=== PATIENT | male | born 1975 | race Caucasian/White ===

== ENCOUNTER 2024-08-15 05:48 | Emergency (ER) | payer OTHER, SELFPAY ==
[2024-08-15] VITALS (7 sets, daily range): BP systolic 134–143; BP diastolic 80–96; PULSE 51–63; RESP 16–18; TEMP 36.8; O2SAT 91–98; BMI 29.7
--- NOTE | 2024-08-15 05:51 | DI.CT.S_ITS ---
PROCEDURE: CT ABDOMEN PELVIS WO CON INDICATIONS: back pain, hx kidney stones TECHNIQUE: Axial sections were acquired from the lung bases to the pubic symphysis. Coronal and sagittal reformats were performed. For radiation dose reduction, the following was used: automated exposure control, adjustment of mA and/or kV according to patient size. COMPARISON: None. FINDINGS: Image quality: Diagnostic. Lower Chest: No significant findings. URINARY: Right Kidney: A couple of sub 3 millimeter nonobstructing nephrolithiasis. Right Ureter: No hydroureter. Left Kidney: Moderate burden of sub 4 millimeter nonobstructing nephrolithiasis. Moderate hydronephrosis. Mild renal edema and perinephric fat stranding Left Ureter: Obstructing 3-4 millimeter stone in the left UVJ, resulting in moderate hydroureter. Bladder: Normal wall thickness. No stones. ABDOMEN: Liver: No contour-deforming solid mass. Hepatic steatosis. Segment 2/3 cyst by Hounsfield units criteria measuring 2.4 centimeter. Additional subcentimeter hypoattenuating lesions, too small to characterize by CT. Gallbladder: No radiopaque gallstones or wall thickening. Biliary ducts: No biliary dilation. Pancreas: No ductal dilation. Spleen: Size is within normal limits. Adrenal Glands: No adrenal nodules. Stomach and Bowel: Normal colonic caliber, without significant wall thickening. Normal appendix. Peritoneum: No abnormal intraperitoneal fluid. No free air. Ventral Wall: Small umbilical hernia containing fat. Abdominal Nodes: No enlarged retroperitoneal or mesenteric lymph nodes. Vessels: Aorta and inferior vena cava are normal in size. PELVIS: Pelvic Organs: Unremarkable. Pelvic Nodes: Unremarkable. Miscellaneous: No inguinal hernias are seen. Bones: Degenerative disc disease of the lumbar spine. Disc osteophyte complex at L5-S1 causing mild spinal canal narrowing. IMPRESSION: Obstructing 4 millimeter stone in the left UVJ, resulting in moderate hydronephrosis and hydroureter. Agree with preliminary report. Dictated by: Denys Sexton M.D. on 08/15/2024 at 8:20 Approved by: Denys Sexton M.D. on 08/15/2024 at 8:23
--- NOTE | 2024-08-15 05:58 | ED_ITS ---
HPI - General Adult <Hammad Hdz MD - Last Filed: 08/15/24 16:09> General Chief complaint: Abdominal Pain Stated complaint: kidney stones Time Seen by Provider: 08/15/24 05:51 History of Present Illness HPI narrative: 48-year-old male with history of kidney stones, has nontraumatic acute onset left middle quadrant discomfort that started 2 hours ago, with some nausea but no emesis. No fevers or chills. No painful urination or dark urination. No loose stools now. Recently he did have gastrointestinal illness last week that seemed to have resolved. Not currently taking any antibiotics. No exposure to persons known to have similar symptoms in close contact. No recent cough or shortness of breath. He had acute onset of his pain and [place] and was helicoptered over here for further management of the pain, receiving IV fentanyl and IV toradol during his transport. Related Data Previous Rx's Medication Instructions Recorded hydrocodone 5 mg-acetaminophen 325 1 tab PO Q6H PRN pain #14 tabs 08/15/24 mg tablet ondansetron 4 mg disintegrating 4 mg PO Q6-8H PRN nausea and 08/15/24 tablet vomiting #10 tabs tamsulosin 0.4 mg capsule (Flomax) 0.4 mg PO BEDTIME #10 caps 08/15/24 Allergies Allergy/AdvReac Type Severity Reaction Status Date / Time No Known Drug Allergies Allergy Verified 08/15/24 06:22 Patient History <Hammad Hdz MD - Last Filed: 08/15/24 16:09> Social History Smoking Status: Never smoker Exam <Hammad Hdz MD - Last Filed: 08/15/24 16:09> Narrative Exam Narrative: GENERAL: Well-developed patient, in mild distress. HEAD: Atraumatic. Normocephalic. EYES: Pupils equal round and reactive. Extraocular motions intact. No scleral icterus. No injection or drainage. ENT: Nose without bleeding, purulent drainage. Throat without erythema, tonsillar hypertrophy or exudate. Airway patent. NECK: Trachea midline. Non tender CARDIOVASCULAR: Regular rate and rhythm without murmurs, gallops, or rubs. RESPIRATORY: Clear to auscultation. Breath sounds equal bilaterally. No wheezes, rales, or rhonchi. GASTROINTESTINAL: Abdomen soft, non-tender, nondistended. EXTREMITIES: No edema or joint tenderness. BACK: Nontender without deformity or crepitance. No flank tenderness. NEURO: AOx3. Motor functions grossly nonfocal SKIN: No rash or erythema of visible areas Initial Vital Signs Initial Vital Signs: Vital Signs Pulse Rate 63 08/15/24 05:52 Blood Pressure 140/96 H 08/15/24 05:52 Pulse Oximetry 92 08/15/24 05:52 <Edilma Dixon DO - Last Filed: 08/15/24 11:13> Initial Vital Signs Initial Vital Signs: Vital Signs Pulse Rate 63 08/15/24 05:52 Blood Pressure 140/96 H 08/15/24 05:52 Pulse Oximetry 92 08/15/24 05:52 Course <Hammad Hdz MD - Last Filed: 08/15/24 16:09> Orders Ordered: ED Orders 08/15/24 07:10 Urinalysis and Microscopic Stat Discontinued Medications Hydrocodone Bitart/Acetaminophen (Hydrocodone/Acet 5/325 Tablet) 1 tab PO NOW ONE Stop: 08/15/24 08:41 Last Admin: 08/15/24 08:43 Dose: Not Given Documented By: RHODA Hydrocodone Bitart/Acetaminophen (Hydrocodone/Acet 5/325 Tablet) 1 tab PO NOW ONE Stop: 08/15/24 08:42 Last Admin: 08/15/24 08:47 Dose: 1 tab Documented By: GA Hydromorphone HCl (Hydromorphone 0.5 Mg Inj) 0.5 mg IV NOW ONE Stop: 08/15/24 06:02 Last Admin: 08/15/24 06:31 Dose: 0.5 mg Documented By: RACIEL Hydromorphone HCl (Hydromorphone 0.5 Mg Inj) 0.5 mg IV NOW ONE Stop: 08/15/24 08:36 Last Admin: 08/15/24 08:43 Dose: Not Given Documented By: RHODA Ketorolac Tromethamine (Ketorolac 30 Mg/Ml Vial) 15 mg IV NOW ONE Stop: 08/15/24 06:02 Last Admin: 08/15/24 06:20 Dose: Not Given Documented By: RACIEL Ondansetron HCl (Ondansetron 4 Mg/2 Ml Inj) 4 mg IV NOW ONE Stop: 08/15/24 06:02 Last Admin: 08/15/24 08:46 Dose: Not Given Documented By: GA Vital Signs Vital signs: Vital Signs - 8 hr 08/15/24 08:30 08/15/24 08:30 Pulse Rate 59 L Blood Pressure 134/80 Pulse Oximetry 96 <Edilma Dixon DO - Last Filed: 08/15/24 11:13> Orders Ordered: ED Orders 08/15/24 07:10 Urinalysis and Microscopic Stat Discontinued Medications Hydrocodone Bitart/Acetaminophen (Hydrocodone/Acet 5/325 Tablet) 1 tab PO NOW ONE Stop: 08/15/24 08:41 Last Admin: 08/15/24 08:43 Dose: Not Given Documented By: RHODA Hydrocodone Bitart/Acetaminophen (Hydrocodone/Acet 5/325 Tablet) 1 tab PO NOW ONE Stop: 08/15/24 08:42 Last Admin: 08/15/24 08:47 Dose: 1 tab Documented By: GA Hydromorphone HCl (Hydromorphone 0.5 Mg Inj) 0.5 mg IV NOW ONE Stop: 08/15/24 06:02 Last Admin: 08/15/24 06:31 Dose: 0.5 mg Documented By: RACIEL Hydromorphone HCl (Hydromorphone 0.5 Mg Inj) 0.5 mg IV NOW ONE Stop: 08/15/24 08:36 Last Admin: 08/15/24 08:43 Dose: Not Given Documented By: RHODA Ketorolac Tromethamine (Ketorolac 30 Mg/Ml Vial) 15 mg IV NOW ONE Stop: 08/15/24 06:02 Last Admin: 08/15/24 06:20 Dose: Not Given Documented By: RACIEL Ondansetron HCl (Ondansetron 4 Mg/2 Ml Inj) 4 mg IV NOW ONE Stop: 08/15/24 06:02 Last Admin: 08/15/24 08:46 Dose: Not Given Documented By: GA Vital Signs Vital signs: Vital Signs - 8 hr 08/15/24 08:30 08/15/24 08:30 Pulse Rate 59 L Blood Pressure 134/80 Pulse Oximetry 96 Medical Decision Making <Hammad Hdz MD - Last Filed: 08/15/24 16:09> Lab Data 08/15/24 06:13 08/15/24 06:13 Labs: Lab Results 08/15/24 08/15/24 Range/Units 06:13 07:10 WBC 7.8 (4.5-11.0) X10^3/uL RBC 4.41 L (4.5-5.9) X10^6/uL Hgb 13.3 L (13.5-17.5) g/dL Hct 39.3 L (41-53) % MCV 89.2 (80-100) fL MCH 30.2 (26-34) PG MCHC 33.9 (30-36) % RDW 12.6 (11.6-14.8) % Plt Count 221 (150-400) X10^3/uL Neut % (Auto) 74.5 (50-75) % Lymph % (Auto) 16.6 L (25-40) % [place] % (Auto) 5.1 (3-14) % Eos % (Auto) 3.2 (2-4) % Baso % (Auto) 0.6 (0-2) % Neut # (Auto) 5800 (4456-2189) /uL Lymph # (Auto) 1300 (2106-6594) /uL [place] # (Auto) 400 (0-900) /uL Eos # (Auto) 200 (0-450) /uL Baso # (Auto) 0 (0-100) /uL Sodium 138 (137-145) mmol/L Potassium 4.1 (3.4-5.1) mmol/L Chloride 104 (98-107) mmol/L Carbon Dioxide 27 (22-32) mmol/L BUN 13 (9-20) mg/dL Creatinine 0.97 (0.66-1.25) mg/dL Estimated GFR > 60 (>60) mL/min BUN/Creatinine Ratio 13.4 (6-22) Glucose 128 H (70-99) mg/dL Calcium 8.8 (8.4-10.2) mg/dL Total Bilirubin 0.6 (0.2-1.3) mg/dL AST 57 (17-59) IU/L ALT 89 H (<50) IU/L Alkaline Phosphatase 71 (38-126) U/L Total Protein 6.6 (6.3-8.2) g/dL Albumin 4.0 (3.5-5.0) g/dL Globulin 2.6 (1.7-4.1) g/dL Albumin/Globulin Ratio 1.5 (1.0-2.8) Urine Color Yellow Urine Appearance Clear Urine pH 6.0 (4.5-8.0) Ur Specific [place] 1.025 (1.000-1.035) Urine Protein Negative (Negative) Urine Glucose (UA) Negative (Negative) g/dL Urine Ketones Negative (NEGATIVE) Urine Occult Blood 3+ H (Negative) Urine Nitrate Negative (Negative) Urine Bilirubin Negative (NEGATIVE) Urine Urobilinogen 0.2 (0.2) E.U./dL Ur Leukocyte Esterase Negative (NEGATIVE) Urine RBC 10-30/hpf H (0-5/HPF) Urine WBC None seen (0-5/HPF) Ur Squamous Epith Cells None seen (0-5/HPF) Urine Bacteria None seen (None) Ur Culture Indicated? Cult not indicated Vol Urine Centrifuged 10ml (spun) MDM Narrative Medical decision making narrative: 48-year-old male with nontraumatic left middle quadrant area discomfort onset 2 hours ago, history of kidney stones, feels somewhat similar, was flown over by helicopter ambulance from [place] for unrelenting pain, given IV fentanyl EN route, some transient improvement, now hurting again. Afebrile, sirs screen negative. DX consider ureteral stone left-sided, UTI, colitis, diverticulitis, muscular strain, radiculopathy, other. We discussed imaging, since he has had history of stones prior, he prefers imaging. CT abdomen and pelvis noncontrast study ordered. Labs still pending. We will give additional analgesic IV Dilaudid and IV Toradol. 0700, CT report pending. Signed out to oncoming ED shift physician Dr. Dixon. Dr. Dixon-patient signed out to me by Dr. Hdz I have seen evaluated patient myself. After Dilaudid he was feeling better. CT does show 6 mm left UVJ calculus. Blood work has been reviewed no leukocytosis no SMITH. Awaiting urinalysis. Currently pain controlled. <Edimla Dixon, DO - Last Filed: 08/15/24 11:13> Lab Data Labs: Lab Results 08/15/24 08/15/24 Range/Units 06:13 07:10 WBC 7.8 (4.5-11.0) X10^3/uL RBC 4.41 L (4.5-5.9) X10^6/uL Hgb 13.3 L (13.5-17.5) g/dL Hct 39.3 L (41-53) % MCV 89.2 (80-100) fL MCH 30.2 (26-34) PG MCHC 33.9 (30-36) % RDW 12.6 (11.6-14.8) % Plt Count 221 (150-400) X10^3/uL Neut % (Auto) 74.5 (50-75) % Lymph % (Auto) 16.6 L (25-40) % [place] % (Auto) 5.1 (3-14) % Eos % (Auto) 3.2 (2-4) % Baso % (Auto) 0.6 (0-2) % Neut # (Auto) 5800 (5981-6032) /uL Lymph # (Auto) 1300 (2780-4535) /uL [place] # (Auto) 400 (0-900) /uL Eos # (Auto) 200 (0-450) /uL Baso # (Auto) 0 (0-100) /uL Sodium 138 (137-145) mmol/L Potassium 4.1 (3.4-5.1) mmol/L Chloride 104 (98-107) mmol/L Carbon Dioxide 27 (22-32) mmol/L BUN 13 (9-20) mg/dL Creatinine 0.97 (0.66-1.25) mg/dL Estimated GFR > 60 (>60) mL/min BUN/Creatinine Ratio 13.4 (6-22) Glucose 128 H (70-99) mg/dL Calcium 8.8 (8.4-10.2) mg/dL Total Bilirubin 0.6 (0.2-1.3) mg/dL AST 57 (17-59) IU/L ALT 89 H (<50) IU/L Alkaline Phosphatase 71 (38-126) U/L Total Protein 6.6 (6.3-8.2) g/dL Albumin 4.0 (3.5-5.0) g/dL Globulin 2.6 (1.7-4.1) g/dL Albumin/Globulin Ratio 1.5 (1.0-2.8) Urine Color Yellow Urine Appearance Clear Urine pH 6.0 (4.5-8.0) Ur Specific [place] 1.025 (1.000-1.035) Urine Protein Negative (Negative) Urine Glucose (UA) Negative (Negative) g/dL Urine Ketones Negative (NEGATIVE) Urine Occult Blood 3+ H (Negative) Urine Nitrate Negative (Negative) Urine Bilirubin Negative (NEGATIVE) Urine Urobilinogen 0.2 (0.2) E.U./dL Ur Leukocyte Esterase Negative (NEGATIVE) Urine RBC 10-30/hpf H (0-5/HPF) Urine WBC None seen (0-5/HPF) Ur Squamous Epith Cells None seen (0-5/HPF) Urine Bacteria None seen (None) Ur Culture Indicated? Cult not indicated Vol Urine Centrifuged 10ml (spun) Imaging Data CT scan - abdomen/pelvis: Radiologist's Impression: Prelim CT scan shows moderate left hydro ureteral nephrosis with perinephric periureteral inflammatory change with the obstructing UVJ calculus measuring 6 mm Final report shows 4 mm stone at UVJ PROCEDURE: CT ABDOMEN PELVIS WO CON INDICATIONS: back pain, hx kidney stones TECHNIQUE: Axial sections were acquired from the lung bases to the pubic symphysis. Coronal and sagittal reformats were performed. For radiation dose reduction, the following was used: automated exposure control, adjustment of mA and/or kV according to patient size. COMPARISON: None. FINDINGS: Image quality: Diagnostic. Lower Chest: No significant findings. URINARY: Right Kidney: A couple of sub 3 millimeter nonobstructing nephrolithiasis. Right Ureter: No hydroureter. Left Kidney: Moderate burden of sub 4 millimeter nonobstructing nephrolithiasis. Moderate hydronephrosis. Mild renal edema and perinephric fat stranding Left Ureter: Obstructing 3-4 millimeter stone in the left UVJ, resulting in moderate hydroureter. Bladder: Normal wall thickness. No stones. ABDOMEN: Liver: No contour-deforming solid mass. Hepatic steatosis. Segment 2/3 cyst by Hounsfield units criteria measuring 2.4 centimeter. Additional subcentimeter hypoattenuating lesions, too small to characterize by CT. Gallbladder: No radiopaque gallstones or wall thickening. Biliary ducts: No biliary dilation. Pancreas: No ductal dilation. Spleen: Size is within normal limits. Adrenal Glands: No adrenal nodules. Stomach and Bowel: Normal colonic caliber, without significant wall thickening. Normal appendix. Peritoneum: No abnormal intraperitoneal fluid. No free air. Ventral Wall: Small umbilical hernia containing fat. Abdominal Nodes: No enlarged retroperitoneal or mesenteric lymph nodes. Vessels: Aorta and inferior vena cava are normal in size. PELVIS: Pelvic Organs: Unremarkable. Pelvic Nodes: Unremarkable. Miscellaneous: No inguinal hernias are seen. Bones: Degenerative disc disease of the lumbar spine. Disc osteophyte complex at L5-S1 causing mild spinal canal narrowing. IMPRESSION: Obstructing 4 millimeter stone in the left UVJ, resulting in moderate hydronephrosis and hydroureter. Agree with preliminary report. Dictated by: Denys Sexton M.D. on 08/15/2024 at 8:20 MDM Narrative Medical decision making narrative: 48-year-old male with nontraumatic left middle quadrant area discomfort onset 2 hours ago, history of kidney stones, feels somewhat similar, was flown over by helicopter ambulance from [place] for unrelenting pain, given IV fentanyl EN route, some transient improvement, now hurting again. Afebrile, sirs screen negative. DX consider ureteral stone left-sided, UTI, colitis, diverticulitis, muscular strain, radiculopathy, other. We discussed imaging, since he has had history of stones prior, he prefers imaging. CT abdomen and pelvis noncontrast study ordered. Labs still pending. We will give additional analgesic IV Dilaudid and IV Toradol. 0700, CT report pending. Signed out to oncoming ED shift physician Dr. Dixon. Dr. Dixon-patient signed out to me by Dr. Hdz I have seen evaluated patient myself. After Dilaudid he was feeling better. CT does show 6 mm left UVJ calculus. Blood work has been reviewed no leukocytosis no SMITH. Awaiting urinalysis. Currently pain controlled. Urinalysis negative for infection At this time supportive care follow up outpatient Discharge Plan Departure Patient Disposition: Home Clinical Impression: Kidney stone on left side Instructions: DI for Kidney Stones Activity Restrictions/Additional Instructions: *You have been diagnosed with kidney stone *What to do: Increase fluids as tolerated you may require stent with Urology *Continue to take medications as directed Flomax 0.4 mg daily Motrin 600 mg every 6 hours for [id number] pain [place] 1 tablet every 4-6 hours if needed for severe pain Zofran 4 mg every 8 hours if needed for nausea or vomiting *Follow up with your primary care provider in 2-3 days or call [phone] Henriquez today for follow up appointment *Return to ER if you should have persistent vomiting fever pain not controlled not tolerating fluids [or] any new, worsening or concerning symptoms CONTROLLED SUBSTANCE DISCHARGE (Narcotoic/benzodiazepine/Flexeril/Phenergan) 1. You have been prescribed narcotic medications, it does have acetaminophen/Tylenol/paracetamol in it, DO NOT TAKE MORE THAN 4,00mg in 24 hours of Tylenol. TRAMADOL DOES NOT CONTAIN TYLENOL 2. Please understand that we cannot provide further refills of narcotics, benzodiazepines or controlled substances through the ED and her pain management will need to be through your provider. 3. While on these medications you cannot drive or operate heavy machinery. 4. You cannot sign legal documents or perform any duties such as this. 5. As long as you're taking opiate pain medications he should also be taking a stool softener such as Colace, Dulcolax, MiraLAX or prune juice, to help avoid constipation. Prescriptions: New hydrocodone-acetaminophen 5-325 mg tablet 1 tab PO Q6H PRN (Reason: pain) Qty: 14 0RF tamsulosin [Flomax] 0.4 mg capsule 0.4 mg PO BEDTIME Qty: 10 0RF ondansetron 4 mg tablet,disintegrating 4 mg PO Q6-8H PRN (Reason: nausea and vomiting) Qty: 10 0RF Referrals: Amaury Jaquez DO [Physician] - Stand Alone Forms: Patient Portal/API/Survey
[2024-08-15 06:20] LABS: Add Manual Diff / Slide Review NO; Basophils Absolute Auto 0 /uL (0-100); Basophils Percent Auto 0.6 % (0-2); Eosinophils Absolute Auto 200 /uL (0-450); Eosinophils Percent Auto 3.2 % (2-4); Hematocrit 39.3 % (41-53); Hemoglobin 13.3 g/dL (13.5-17.5); Lymphocytes Absolute Auto 1300 /uL (1100-4500); Lymphocytes Percent Auto 16.6 % (25-40); Mean Corpuscular HGB Conc 33.9 % (30-36); Mean Corpuscular Hemoglobin 30.2 PG (26-34); Mean Corpuscular Volume 89.2 fL (80-100); Monocytes Absolute Auto 400 /uL (0-900); Monocytes Percent Auto 5.1 % (3-14); Neutrophils Absolute Auto 5800 /uL (1500-7000); Neutrophils Percent Auto 74.5 % (50-75); Platelet Count 221 X10^3/uL (150-400); Red Blood Cell Count 4.41 X10^6/uL (4.5-5.9); Red Cell Distribution Width 12.6 % (11.6-14.8); White Blood Cell Count 7.8 X10^3/uL (4.5-11.0)
[2024-08-15] MEDS: HYDROMORPHONE 0.5 MG INJ IV (06:31)
[2024-08-15 06:36] LABS: Alanine Aminotransferase 89 IU/L (<50); Albumin Globulin Ratio 1.5 (1.0-2.8); Alkaline Phosphatase 71 U/L (38-126); Aspartate Aminotransferase 57 IU/L (17-59); BUN Creatinine Ratio 13.4 (6-22); Bilirubin Total 0.6 mg/dL (0.2-1.3); Blood Urea Nitrogen 13 mg/dL (9-20); Calcium 8.8 mg/dL (8.4-10.2); Carbon Dioxide 27 mmol/L (22-32); Chloride 104 mmol/L (98-107); Estimated Glomerular Filt Rate > 60 mL/min (>60); Globulin 2.6 g/dL (1.7-4.1); Glucose 128 mg/dL (70-99); HEMOLYSIS 18 (0-50); Potassium 4.1 mmol/L (3.4-5.1); Sodium 138 mmol/L (137-145); Total Protein 6.6 g/dL (6.3-8.2)
[2024-08-15 08:19] LABS: Appearance Urine UA CLEAR; Bilirubin Urine UA NEGATIVE (NEGATIVE); Color Urine UA YELLOW; Glucose Urine UA NEGATIVE (Negative); Ketones Urine UA NEGATIVE (NEGATIVE); Leukocyte Esterase Urine UA NEGATIVE (NEGATIVE); Nitrite Urine UA NEGATIVE (Negative); Occult Blood Urine UA 3+ (Negative); Protein Urine UA NEGATIVE (Negative); Specific Gravity Urine UA 1.025 (1.000-1.035); Urobilinogen Urine UA 0.2 E.U./dL (0.2)
[2024-08-15 08:22] LABS: Urine Volume 10mL (spun)
[2024-08-15 08:23] LABS: Bacteria Urine None Seen; Culture Indicated Urine Cult Not Indicated; RBC Urine 10-30/HPF (0-5/HPF); Squamous Epithelial Cell Urine None Seen (0-5/HPF); WBC Urine None Seen (0-5/HPF)
[2024-08-15] MEDS: HYDROCODONE/ACET 5/325 TABLET 1 TAB PO (08:47)
== END 2024-08-15 08:49 | disposition home or self-care (01) ==
PROVIDERS: Emergency Medicine; Emergency Provider Emergency Medicine
DX: N20.0 Calculus of kidney (principal); Z87.442 Personal history of urinary calculi
CPT/HCPCS: 74176; 80053; 81001; 85025; 96374; 99284; J1171

== ENCOUNTER → 2025-03-06 19:26 | Outpatient (ROUT) | payer OTHER, SELFPAY | PROVIDERS: Visit Provider Registered Nurse | DX: L03.90 Cellulitis, unspecified (principal); Z79.899 Other long term (current) drug therapy; B01.9 Varicella without complication | CPT/HCPCS: 87070; 87075; 87205; 87798 ==